=== PATIENT | female | born 1990 | race Caucasian/White ===

== ENCOUNTER 2023-10-20 19:56 | Emergency (ER) | payer OTHER ==
--- NOTE | 2023-10-20 20:13 | ERPHSYRPT ---
- History of Present Illness Time Seen by Provider: 10/20/23 20:12 Source: patient, family Exam Limitations: no limitations Physician History: pt has skin cyst that she thinks may need drainage. She has noted a few days and has no hx of others. this is to the side of the midline on left posterior. lots of sebacious matter and pus drained with I and D after discussion of risks/benefits with pt and she wished to proceed. She declined culture after discussion of cost and benefitswhich is reasonable as a choice in that drainage most often resolves these. Discussed pcn allergy and pt is not sure what she has tolerated in past. SHe agrees to doxycycline after discussion of risks/benefits and limitations in coverage. Timing/Duration: day(s) Quality: painful Severity: moderate Location: other (back) Possible Causes: other (infected sebacious cyst. ) Associated Symptoms: denies symptoms Allergies/Adverse Reactions: Penicillins Allergy (Verified 10/20/23 20:09) Hx Tetanus, Diphtheria Vaccination/Date Given: Yes (reported by pt as UTD < 10 yrs) - Review of Systems Constitutional: No Fever, No Chills Eyes: No Symptoms Ears, Nose, & Throat: No Symptoms Respiratory: No Cough, No Dyspnea Cardiac: No Chest Pain, No Edema, No Syncope Abdominal/Gastrointestinal: No Abdominal Pain, No Nausea, No Vomiting, No Diarrhea Genitourinary Symptoms: No Dysuria Musculoskeletal: No Back Pain, No Neck Pain Skin: No Rash Neurological: No Dizziness, No Focal Weakness, No Sensory Changes Psychological: No Symptoms Endocrine: No Symptoms All Other Systems: Reviewed and Negative - Past Medical History Pertinent Past Medical History: No - Nursing Vital Signs Nursing Vital Signs: Initial Vital Signs Pulse Rate 76 10/20/23 20:09 Respiratory Rate 17 10/20/23 20:09 Blood Pressure 164/82 10/20/23 20:09 O2 Sat by Pulse Oximetry 97 10/20/23 20:09 Pain Scale Pain Intensity 0 - Physical Exam General Appearance: no apparent distress, alert Eye Exam: PERRL/EOMI, eyes nml inspection Ears, Nose, Throat Exam: normal ENT inspection, pharynx normal, moist mucous membranes Neck Exam: normal inspection, non-tender, supple, full range of motion Respiratory Exam: normal breath sounds, lungs clear, No respiratory distress Cardiovascular Exam: regular rate/rhythm, normal heart sounds Gastrointestinal/Abdomen Exam: soft, mass, No tenderness Pelvic Exam: deferred Rectal Exam: deferred Back Exam: normal inspection, normal range of motion, No CVA tenderness, No vertebral tenderness Extremity Exam: normal inspection, normal range of motion Neurologic Exam: alert, oriented x 3, cooperative, normal mood/affect, sensation nml, No motor deficits Skin Exam: normal color, warm, dry, other (infected sebacious cyst left back) SpO2 Interpretation: normal SpO2: 97 O2 Delivery: Room Air Procedures - Incision and Drainage Time of Procedure: 22:07 Site: left upper posterior thorax/back Anesthesia: 1% Lidocaine cc's of anesthesia: 5 Blade Size: 11 I & D Procedure: betadine prep, sterile drapes applied, sterile dressing applied, No culture obtained, gauze wick placed Results: large amount pus - Course Nursing assessment & vital signs reviewed: Yes Ordered Tests: Medication Summary Discontinued Medications Generic Name Dose Route Start Last Admin Trade Name Dariusq PRN Reason Stop Dose Admin Lidocaine HCl 10 ml 10/20/23 21:41 10/20/23 21:44 Lidocaine Hcl 1% 20 Ml Mdv 20 Ml Ml IJ 10/20/23 21:42 10 ml STAT ONE Administration Lidocaine HCl Confirm 10/20/23 21:41 Lidocaine Hcl 1% 20 Ml Mdv 20 Ml Ml Administered 10/20/23 21:42 Dose 10 ml .ROUTE .STK-MED ONE - Progress Progress: improved, re-examined Counseled pt/family regarding: diagnosis, need for follow-up Medical Desision Making - Discussion of managment Reviewed:: Test results, Need for additional workup Agreed on:: Treatment plan, need for follow-up - Diagnostic Testing Diagnostic test were ordered, analyzed, and reviewed by me: No - Risk of complications The pt has a mod risk of morbidity or mortality based on: Need for prescription drug management - Departure Departure Disposition: Home Clinical Impression: Infected cyst of skin Condition: Good Critical Care Time: No Instructions: Abscess Incision and Drainage ED Additional Instructions: this packing will need to be changed by your Dr or return for this here in the next few days or if there is increased drainge or pain or fever or other concerns in the meantime return. See your Dr. for your elevated blood pressure also. Prescriptions: Doxycycline Hyclate 100 mg [Vibramycin 100 MG] 100 mg PO BID #20 tab
[2023-10-20 20:22] VITALS: TEMP 97.5
[2023-10-20] MEDS ORDERED: XYLOCAINE 1% HCL 20 ML MDV ONE (21:41)
[2023-10-20] MEDS: XYLOCAINE 1% HCL 20 ML MDV IJ ONE (21:44)
[2023-10-20 22:10] VITALS: O2SAT 97
[2023-10-20 22:11] VITALS: BP 140/80; PULSE 78; RESP 20
[2023-10-20] MEDS ORDERED: Vibramycin 100 MG ONE (22:18)
[2023-10-20] MEDS ORDERED: NORCO 5/325 MG ONE (22:18)
[2023-10-20] MEDS: NORCO 5/325 MG PO ONE (22:19)
[2023-10-20] MEDS: Vibramycin 100 MG PO ONE (22:19)
== END 2023-10-20 22:34 | disposition home or self-care (01) ==
LOC: ED 19:56
DX: L72.3 Sebaceous cyst (principal)
CPT/HCPCS: 10060; 96372; 99283; A9270-GY